=== PATIENT | female | born 2000 | race Caucasian/White ===

== ENCOUNTER 2022-01-06 17:47 | Emergency (ER) | payer MEDICAID ==
[~2022-01-06] VITALS: Ht 160 cm; Wt 73.0 kg
[2022-01-06 17:50] VITALS: BP 116/84
[2022-01-06] MEDS ORDERED: BACITRACIN ZINC OINT UDPKT TOP ONE (18:30)
[2022-01-06] MEDS ORDERED: ACETAMINOPHEN 325MG TABLET PO ONE (18:30)
[2022-01-06] MEDS ORDERED: TETANUS, DIPHTHERIA, PERTUSSIS VAC/PF 0.5ML (>10YR OLD) IM ONE (18:30)
== END 2022-01-06 19:02 | disposition home or self-care (01) ==
LOC: ER 17:47
DX: S61.210A Laceration without foreign body of right index finger without damage to nail, initial encounter (principal); W26.0XXA Contact with knife, initial encounter; Y93.G3 Activity, cooking and baking; Y92.010 Kitchen of single-family (private) house as the place of occurrence of the external cause
CPT/HCPCS: 90715; 99282

== ENCOUNTER 2024-04-15 13:54 | Emergency (ER) | payer MEDICAID ==
[~2024-04-15] VITALS: Ht 160 cm; Wt 74.0 kg
[2024-04-15 13:59] VITALS: TEMP 98.5; O2SAT 100
[2024-04-15] MEDS: ONDANSETRON 4MG ODT PO ONE (14:52)
[2024-04-15 14:53] VITALS: BP 100/70; PULSE 80; RESP 15; O2SAT 99
== END 2024-04-15 15:24 | disposition home or self-care (01) ==
LOC: ER 13:54
DX: R11.2 Nausea with vomiting, unspecified (principal); F41.9 Anxiety disorder, unspecified
CPT/HCPCS: 99283; 81025; Q0162